=== PATIENT | male | born 1985 | race Caucasian/White ===

== ENCOUNTER 2017-07-28 12:01 | Emergency (ER) | payer MEDICAID ==
[2017-07-28 12:43] VITALS: BP 125/68
--- NOTE | 2017-07-28 14:14 | UC ---
Dental HPI - HPI Summary HPI Summary: DENTAL PAIN AND SWELLING LEFT LOWER JAW (29.30,31) SINCE YESTERDAY. NO FEVER. NO TRAUMA. 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 Onset/Duration: Gradual Onset, Lasting Days, Still Present Severity: Mild Aggravating Factor(s): Chewing Related History: Previous Dental Care on Same Tooth, Swelling - Allergies/Home Medications Allergies/Adverse Reactions: Allergies Allergy/AdvReac Type Severity Reaction Status Date / Time No Known Allergies Allergy Verified 07/28/17 12:35 Home Medications: Home Medications Gabapentin CAP(*) [Neurontin 300 CAP(*)] 300 mg PO TID 07/28/17 [History Confirmed 07/28/17] buPROPion TAB* [Wellbutrin TAB*] 300 mg PO DAILY 07/28/17 [History Confirmed ] PMH/Surg Hx/FS Hx/Imm Hx Previously Healthy: Yes - Surgical History Surgical History: Yes Surgery Procedure, Year, and Place: GALL BLADDER REMOVER -[facility] – [place]-, RIGHT HIP SURGERY 09/19, FOUR SCREWS IN RIGHT FEMUR - Family History Known Family History: Negative: Respiratory Disease - Social History Occupation: Employed Full-time Lives: With Family Alcohol Use: None Substance Use Type: None Smoking Status (MU): Light Every Day Tobacco Smoker Amount Used/How Often: 5 cig. day Cessation Counseling: Patient Advised to Stop - Immunization History Most Recent Tetanus Shot: 09/13/12 Review of Systems Constitutional: Negative Skin: Negative Eyes: Negative ENT: Dental Pain Respiratory: Negative Cardiovascular: Negative Gastrointestinal: Negative Genitourinary: Negative Motor: Negative Neurovascular: Negative Musculoskeletal: Negative Neurological: Negative Psychological: Negative Is Patient Immunocompromised?: No All Other Systems Reviewed And Are Negative: Yes Physical Exam Triage Information Reviewed: Yes Appearance: Well-Appearing, Well-Nourished, Pain Distress - MILD Vital Signs: Initial Vital Signs Temp 98.6 F 07/28/17 12:38 Pulse 80 07/28/17 12:38 Resp 18 07/28/17 12:38 BP 125/68 07/28/17 12:38 Pulse Ox 100 07/28/17 12:38 Vital Signs Reviewed: Yes Eye Exam: Normal ENT Exam: Normal ENT: Positive: Normal ENT inspection, Hearing grossly normal, TMs normal Dental: Positive: Percussion Tenderness @ - 29,30,31, Abscess @ - 29,30,31 Neck exam: Normal Neck: Positive: Supple, Nontender, No Lymphadenopathy Respiratory Exam: Normal Respiratory: Positive: Chest non-tender, Lungs clear, Normal breath sounds, No respiratory distress, No accessory muscle use Cardiovascular Exam: Normal Cardiovascular: Positive: RRR, No Murmur, Pulses Normal Abdominal Exam: Normal Musculoskeletal Exam: Normal Musculoskeletal: Positive: Strength Intact, ROM Intact Neurological Exam: Normal Psychological Exam: Normal Skin Exam: Normal Dental Complaint Course/Dx - Differential Dx/Diagnosis Differential Diagnosis/Dx: Dental Abscess Provider Diagnoses: LEFT LOWER JAW ABSCESS 29,30,31 Discharge - Discharge Plan Condition: Stable Disposition: HOME Prescriptions: Amoxicillin/Clavulanate TAB* [Augmentin TAB 875*] 875 mg PO BID #20 tab Patient Education Materials: Dental Abscess (ED), Toothache (ED) Referrals: [facility] [place] PHYSICIAN REFERRAL [Outside] Images Dental: 1 - DENTAL PAIN SWELLING
== END 2017-07-28 14:00 | disposition home or self-care (01) ==
LOC: UCEAST 12:01
DX: M27.2 Inflammatory conditions of jaws (principal); F17.210 Nicotine dependence, cigarettes, uncomplicated
CPT/HCPCS: 99212; G0463

== ENCOUNTER 2019-09-13 08:58 | Emergency (ER) | payer OTHER ==
[2019-09-13] MEDS ORDERED: ceFAZolin 1 GM ADVAN(*) 1 GM in NS 0.9% 50 ML* 50 ML IVPB ONE (09:04)
[2019-09-13] MEDS ORDERED: Lidocaine 1% MPF ** 5 ML VIAL INJ ONE ×2 (09:04→10:37)
[2019-09-13] MEDS ORDERED: Ondansetron INJ* 2 MG/ML VIAL IV ONE (09:05)
[2019-09-13] MEDS ORDERED: Morphine 4 MG/ML VIAL (1 ml) 4 MG/ML VIAL IV ONE ×2 (09:05→09:46)
[2019-09-13] MEDS ORDERED: Tetan/Diph/Pertus SYR(Tdap)* 0.5 ML SYR(BOOSTRIX) use SYR contains LATEX IM ONE (09:06)
--- NOTE | 2019-09-13 10:02 | ED ---
Upper Extremity Pain - HPI Summary HPI Summary: Patient is a 34-year-old male who presents emergency department for injury to second and third digit of left hand that occurred just prior to arrival. 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 Patient unaware of his last tetanus immunization. Denies past medical history. Symptoms are moderate in severity. Moving and touching affected area makes symptoms worse. Nothing makes symptoms better. Patient is right-hand dominant. - History of Current Complaint Chief Complaint: EDExtremityUpper Stated Complaint: HAND INJURY FROM SNOWBLOWER PER PT Time Seen by Provider: 09/13/19 09:01 Hx Obtained From: Patient - Allergies/Home Medications Allergies/Adverse Reactions: Allergies Allergy/AdvReac Type Severity Reaction Status Date / Time No Known Allergies Allergy Verified 07/28/17 12:35 PMH/Surg Hx/FS Hx/Imm Hx Previously Healthy: Yes Endocrine/Hematology History: Denies: Hx Diabetes Cardiovascular History: Denies: Hx Hypertension Respiratory History: Denies: Hx Chronic Obstructive Pulmonary Disease (COPD) History: Denies: Hx Dialysis Neurological History: Denies: Hx Dementia, Hx Seizures Psychiatric History: Denies: Hx Anxiety - Surgical History Surgery Procedure, Year, and Place: GALL BLADDER REMOVER [place] [place] RIGHT HIP SURGERY 09/19, FOUR SCREWS IN RIGHT FEMUR Hx Anesthesia Reactions: No Infectious Disease History: No Infectious Disease History: Denies: Traveled Outside the [place] in Last 30 Days - Family History Known Family History: Positive: Non-Contributory Negative: Respiratory Disease - Social History Occupation: Unemployed Lives: With Family Alcohol Use: None Substance Use Type: Reports: None Smoking Status (MU): Light Every Day Tobacco Smoker Amount Used/How Often: 5 cig. day Review of Systems Positive: Other - lacerations to second and third digits of left hand All Other Systems Reviewed And Are Negative: Yes Physical Exam Triage Information Reviewed: Yes Vital Signs On Initial Exam: Initial Vitals Temp Pulse Resp BP Pulse Ox 98.1 F 108 18 144/111 99 09/13/19 08:59 09/13/19 08:59 09/13/19 08:59 09/13/19 08:59 09/13/19 08:59 Vital Signs Reviewed: Yes Appearance: Positive: Pain Distress - Patient sitting on stretcher hyperventilating. Appears in pain but nontoxic. Family present. Skin: Positive: Warm, Dry Head/Face: Positive: Normal Head/Face Inspection Eyes: Positive: Normal, EOMI, JONATHON Neck: Positive: Supple Musculoskeletal: Positive: Other - Noted to 3rd digit of left there is a 1.5cm linear laceration on the volar aspect distal to the DIP. Large avulsion and laceration noted to the distal second digit of left hand distal to the DIP. Minimal active bleeding. Neurological: Positive: Normal, CN Intact II-III Psychiatric: Positive: Affect/Mood Appropriate Procedures - Sedation Patient Received Moderate/Deep Sedation with Procedure: No - Laceration/Wound Repair 1 Location: upper extremity - 2nd digit of left hand Description: Irregular Anesthesia: Local, Digital, 1.0%, Lido Length, Depth and Shape: 3 cm irregular Betadine Prep?: Yes Irrigated w/ Saline (ccs): 250 Laceration/Wound Explored: clean Closure: Single Layer Suture Type: Nylon Number of Sutures: 4 Layer Closure?: No Sterile Dressing Applied?: Yes 2 Location: upper extremity - 3rd digit left hand Description: Linear Anesthesia: Local, 1.0%, Lido Length, Depth and Shape: 1.5 cm linear Irrigated w/ Saline (ccs): 250 Laceration/Wound Explored: clean Closure: Single Layer Debridement: minimal Suture Type: Nylon Number of Sutures: 7 Layer Closure?: No Sterile Dressing Applied?: Yes Diagnostics - Vital Signs Vital Signs Temp Pulse Resp BP Pulse Ox 09/13/19 09:55 18 09/13/19 09:11 22 09/13/19 08:59 98.1 F 108 18 144/111 99 - Laboratory Lab Statement: Any lab studies that have been ordered have been reviewed, and results considered in the medical decision making process. Course/Dx - Course Course Of Treatment: Pt. presenting with partial amputation of second digit and laceration to 3rd digit. IV placed and pt. given IV pain medication, ancef and tetanus. Digital block performed to 2nd digit and pt. refused block to 3rd digit. Pt. had moderate pain relief. Xray per radiology: IMPRESSION: Heavily comminuted intra-articular fractures of the second and third distal phalanges with. associated lacerations. Case discussed with oncall orthopedics, Dr. Nolasco, who reviewed xray films. Dr. oNlasco would like wounds closed as best as possible and they will see him in office. Wounds were soaked in betadine and extensively irrigated. Wounds were approximated as best as possible. Pt. continued to have pain after IV pain medication, digital block and local anesthetic. Pt. is very anxious and tolerated wound closure very poorly. Digits were then dressed with sterile gauze and splints placed. I was able to make pt. an apt. with hand sx, Dr. Maldonado, for 09/16/19, at 1315. Pt. dc with rx for keflex and percocet. Will return to ER if sxs change or worsen. Pt. and family understand and agree with plan. 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 Maldonado will see you in office 09/16/19, at 1:15pm Keep wounds clean and dry Pain medication as directed Antibiotic as directed Elevate hand intermittently Return to ER if symptoms change or worsen - Billing Disposition and Condition Condition: IMPROVED Disposition: Home
[2019-09-13] MEDS ORDERED: Lidocaine 1% MPF ** 5 ML VIAL ONE (10:39)
[2019-09-13] MEDS ORDERED: oxyCODONE/Acetamin 5/325 MG* TAB PO ONE (11:04)
[2019-09-13 11:39] VITALS: BP 142/79
== END 2019-09-13 11:25 | disposition home or self-care (01) ==
LOC: ED 08:58
DX: S68.121A Partial traumatic metacarpophalangeal amputation of left index finger, initial encounter (principal); Z23 Encounter for immunization; F17.210 Nicotine dependence, cigarettes, uncomplicated; W31.89XA Contact with other specified machinery, initial encounter; Y92.9 Unspecified place or not applicable
CPT/HCPCS: 12001; 90471; 90715; 96365; 96375; 96376; 99284; A9270-GY; J0690; J2270; J2405

== ENCOUNTER 2019-12-04 18:48 | Emergency (ER) | payer OTHER ==
--- NOTE | 2019-12-04 20:26 | ED ---
Abdominal Pain/Male - HPI Summary HPI Summary: Patient complains of upper quadrant abdominal pain radiating to mid back starting last night with associated nausea vomiting and diarrhea. Denies history of present same pain. Denies trauma, fever, cough, sore throat, CP, SOB , change in urine, testicular or penis symptoms. Denies prior cardiac history. Denies medical history. Abdominal surgical history is cholecystectomy. Denies chronic EtOH. - History of Current Complaint Chief Complaint: EDAbdPain Stated Complaint: BACK PAIN/VOMITING PER Time Seen by Provider: 12/04/19 20:25 Hx Obtained From: Patient Onset/Duration: Sudden Onset, Lasting Hours Timing: Constant Severity Initially: Severe Severity Currently: Severe Pain Intensity: 10 Pain Scale Used: 0-10 Numeric Location: Discrete At: RUQ, Discrete At: LUQ, Epigastric Radiates: Yes Radiates to: Back Character: Sharp, Burning Alleviating Factor(s): Nothing Associated Signs And Symptoms: Positive: Nausea, Vomiting, Diarrhea - Allergies/Home Medications Allergies/Adverse Reactions: Allergies Allergy/AdvReac Type Severity Reaction Status Date / Time No Known Allergies Allergy Verified 12/04/19 18:54 Home Medications: Home Medications Gabapentin CAP(*) [Neurontin 300 CAP(*)] 900 mg PO TID 07/28/17 [History Confirmed 09/13/19] Cephalexin CAP* [Keflex CAP*] 500 mg PO QID #40 cap 09/13/19 [Rx] oxyCODONE/Acetamin 5/325 MG* [Percocet 5/325 TAB*] 1 tab PO Q6H PRN #16 tab MDD 4 09/13/19 [Rx] Lidocaine 2% VISCOUS* [Xylocaine 2% Viscous*] 15 ml SWISH SWAL Q6H PRN #1 btl [Rx] Omeprazole 20 mg PO DAILY 30 Days #30 capsule. 12/04/19 [Rx] Ondansetron ODT TAB* [Zofran 4 MG Odt TAB*] 4 mg PO Q8H PRN 4 Days #14 tab.odt 12/04/19 [Rx] PMH/Surg Hx/FS Hx/Imm Hx Endocrine/Hematology History: Denies: Hx Diabetes Cardiovascular History: Denies: Hx Hypertension Respiratory History: Denies: Hx Chronic Obstructive Pulmonary Disease (COPD) History: Denies: Hx Dialysis Sensory History: Denies: Hx Eye Prosthesis Opthamlomology History: Denies: Hx Legally Blind EENT History: Denies: Hx Deafness Neurological History: Denies: Hx Dementia, Hx Seizures Psychiatric History: Denies: Hx Anxiety - Surgical History Surgery Procedure, Year, and Place: GALL BLADDER REMOVER -[facility] – [place]-, RIGHT HIP SURGERY 09/19, FOUR SCREWS IN RIGHT FEMUR Hx Anesthesia Reactions: No Infectious Disease History: No Infectious Disease History: Denies: Traveled Outside the [place] in Last 30 Days - Family History Known Family History: Positive: Non-Contributory Negative: Respiratory Disease - Social History Alcohol Use: None Substance Use Type: Reports: None Smoking Status (MU): Light Every Day Tobacco Smoker Amount Used/How Often: 5 cig. day Review of Systems Constitutional: Negative Eyes: Negative ENT: Negative Cardiovascular: Negative Respiratory: Negative Positive: Abdominal Pain, Vomiting, Diarrhea, Nausea Genitourinary: Negative Musculoskeletal: Negative Skin: Negative Neurological/Mental Status: Negative Psychological: Normal All Other Systems Reviewed And Are Negative: Yes Physical Exam - Summary Physical Exam Summary: Tender in all upper quadrant of abdomen. Abdominal exam otherwise unremarkable. No tenderness to back, no erythema, ecchymosis, deformity, swelling to back. Triage Information Reviewed: Yes Vital Signs On Initial Exam: Initial Vitals Temp Pulse Resp BP Pulse Ox 98.2 F 95 18 130/85 98 12/04/19 18:50 12/04/19 18:50 12/04/19 18:50 12/04/19 18:50 12/04/19 18:50 Vital Signs Reviewed: Yes Appearance: Positive: Well-Appearing Skin: Positive: Warm Head/Face: Positive: Normal Head/Face Inspection Eyes: Positive: Normal Neck: Positive: Supple Respiratory/Lung Sounds: Positive: Clear to Auscultation Cardiovascular: Positive: Normal Abdomen Description: Positive: Other: Musculoskeletal: Positive: Normal Neurological: Positive: Normal Psychiatric: Positive: Normal AVPU Assessment: Alert - [place] Coma Scale Best Eye Response: 4 - Spontaneous Best Motor Response: 6 - Obeys Commands Best Verbal Response: 5 - Oriented Coma Scale Total: 15 Procedures - Sedation Patient Received Moderate/Deep Sedation with Procedure: No Diagnostics - Vital Signs Vital Signs Temp Pulse Resp BP Pulse Ox 12/04/19 18:50 98.2 F 95 18 130/85 98 - Laboratory Result Diagrams: 12/04/19 20:34 12/04/19 20:34 Lab Statement: Any lab studies that have been ordered have been reviewed, and results considered in the medical decision making process. Abdominal Pain Male Course/Dx - Course Course Of Treatment: Patient complains of upper quadrant abdominal pain radiating to mid back starting last night with associated nausea vomiting and diarrhea. Denies history of present same pain. Denies trauma, fever, cough, sore throat, CP, SOB, change in urine, testicular or penis symptoms. Denies prior cardiac history. Denies medical history. Abdominal surgical history is cholecystectomy. Denies chronic EtOH. Vital signs within normal limits. Labs unremarkable. EKG sinus rhythm, rate of 89, normal axis. CTAchest negative. CT abdomen and pelvis positive for gastric distention with a narrow duodenal bulb which could be secondary to contraction with other possibilities including peptic ulcer disease. Symptoms improved with GI cocktail and fentanyl. - Diagnoses Provider Diagnoses: Gastritis Discharge ED - Sign-Out/Discharge Documenting (check all that apply): Patient Departure - Discharge Plan Condition: Stable Disposition: HOME Prescriptions: Lidocaine 2% VISCOUS* [Xylocaine 2% Viscous*] 15 ml SWISH SWAL Q6H PRN #1 btl PRN Reason: Pain - Moderate Omeprazole 20 mg PO DAILY 30 Days #30 capsule. Ondansetron ODT TAB* [Zofran 4 MG Odt TAB*] 4 mg PO Q8H PRN 4 Days #14 tab.odt PRN Reason: Nausea Patient Education Materials: Gastritis (ED) Referrals: Pola Penn DUMP WORKER [Primary Care Provider] - Alia Rojas MD [Medical Doctor] - Additional Instructions: Take omeprazole daily. Take Zofran as directed for nausea if needed. Use lidocaine with Maalox for breakthrough gastric pain. Follow-up with GI Dr Leander Marshall for further evaluation. Return to the ED for any new or worsening symptoms. - Billing Disposition and Condition Condition: STABLE Disposition: Home - Attestation Statements Provider Attestation: I was available for consult. This patient was seen by the CHANDA. The patient was not presented to, seen by, or examined by me. Otilio Carrero MD
[2019-12-04] MEDS ORDERED: Ondansetron INJ* 2 MG/ML VIAL IV ONE (20:32)
[2019-12-04] MEDS ORDERED: Morphine 4 MG/ML VIAL (1 ml) 4 MG/ML VIAL IV ONE (20:32)
[2019-12-04] MEDS ORDERED: NS 0.9% 1000 ML** 1,000 ML IV ONE (20:32)
[2019-12-04 20:41] LABS: ABS Lymphocytes 0.5 10^3/ul (1.0-4.8); ABS Monocytes 0.6 10^3/ul (0-0.8); ABS Neutrophils 8.9 10^3/ul (1.5-7.7); Hematocrit 44 % (42-52); Hemoglobin 15.3 g/dL (14.0-18.0); Lymphocyte % 4.6 %; Mean Corpuscular HGB Conc 35 g/dL (31-36); Mean Corpuscular Hemoglobin 32 pg (27-31); Mean Corpuscular Volume 91 fL (80-94); Mean Platelet Volume 6.7 fL (7.4-10.4); Platelet Count 310 10^3/uL (150-450); Red Blood Count 4.84 10^6 /uL (4.18-5.48); Red Cell Distribution Width 13 % (10-15)
[2019-12-04 21:03] LABS: Albumin 4.3 g/dL (3.2-5.2); Albumin/Globulin Ratio 1.4 (1-3); BUN/Creatinine Ratio 27.9 (8-20); Calcium 9.2 mg/dL (8.6-10.3); EGFR African American 162.5 (>60); EGFR Non-African American 134.3 (>60); Potassium 3.7 mmol/L (3.5-5.0); Total Bilirubin 0.8 mg/dL (0.2-1.0); Total Protein 7.3 g/dL (6.4-8.9)
[2019-12-04] MEDS ORDERED: Iohexol 300* (CONTRAST) 10 ML SDV IV ONE (21:10)
[2019-12-04] MEDS ORDERED: Iohexol 350* (CONTRAST) 500 ML MDV IV ONE (21:18)
[2019-12-04] MEDS ORDERED: fentaNYL* 50 MCG/ML 2 ML VIAL (100 MCG VIAL) IV SLOW PU ONE (21:21)
[2019-12-04] MEDS ORDERED: Al Hydrox/Mg Hydrox/Simet LIQ* 30 ML UDC PO ONE (23:00)
[2019-12-04] MEDS ORDERED: Lidocaine 2% VISCOUS* 15 ML UDC PO ONE (23:00)
[2019-12-04] MEDS ORDERED: Pantoprazole IV* 40 MG IV ONE (23:01)
[2019-12-04 23:52] VITALS: BP 124/78
== END 2019-12-04 23:52 | disposition home or self-care (01) ==
LOC: ED 18:48
DX: K29.70 Gastritis, unspecified, without bleeding (principal); F17.210 Nicotine dependence, cigarettes, uncomplicated; Z90.49 Acquired absence of other specified parts of digestive tract; Z79.899 Other long term (current) drug therapy
CPT/HCPCS: 36415; 71275; 74177; 80053; 83605; 83690; 84484; 85025; 93005; 96361; 96374; 96375; 99284; A9270-GY; J2270; J2405; J3010; Q9967